=== PATIENT | female | born 2000 | race Caucasian/White ===

== ENCOUNTER 2021-09-03 05:11 | Outpatient (CLI) | payer SELFPAY ==
[2021-09-03 06:22] VITALS: BP 131/87
--- NOTE | 2021-09-03 10:13 | Ultrasound Report ---
US OB BPP wo non-stress, US OB follow up INDICATION / CLINICAL INFORMATION: well being. Clinical Gestational Age (GA) in weeks, days: 39 weeks 4 days TECHNIQUE: Transabdominal. COMPARISON: None available. FINDINGS: NUMBER: Single PRESENTATION: cephalic MATERNAL ADNEXA: No significant abnormality. AMNIOTIC FLUID VOLUME: normal AMNIOTIC FLUID INDEX (JACKELIN) in cm (if measured): 9.1 ANATOMY: Examination is not tailored to evaluate detailed anatomy. Crescentic anechoic structure in the region of the scrotum, likely reflecting hydroceles related to patent processes vaginalis. This is typically a benign transient finding. MEASUREMENTS: - Biparietal Diameter = 8.9 cm = 35 weeks 6 days - Head Circumference = 34.3 cm = 39 weeks 4 days - Abdominal Circumference = 35.2 cm = 39 weeks 0 days - Femur Length = 7.7 cm = 39 weeks 1 day - Estimated Weight (in grams, if calculated): 3568 g - Heart Rate (beats per minute): 137 AVERAGE ULTRASOUND AGE (AUA) in weeks, days = 38 weeks 3 days BIOPHYSICAL PROFILE: BREATHING MOVEMENT = 2 GROSS BODY MOVEMENT = 2 TONE = 2 QUALITATIVE AMNIOTIC FLUID VOLUME = 2 TOTAL BIOPHYSICAL SCORE = 8/8 IMPRESSION: 1. Single intrauterine with AUA of 38 weeks 3 days. Estimated weight measures 3568 g. 2. Bilateral hydroceles, typically a benign transient finding. Continued follow-up is recommend ed. 3. Otherwise, no significant abnormality. Normal JACKELIN of 9.1 cm. 4. Normal biophysical profile of 8/8. Signer Name: Kirt Sanchez MD Signed: 09/03/2021 10:08 AM Workstation Name: Fixed - Parking [id number]
== END 2021-09-03 10:34 | disposition home or self-care (01) ==
LOC: TRG 05:11 → APU 05:12 → TRG 10:34
PROVIDERS: ATTEND Obstetrics & Gynecology
DX: O46.93 Antepartum hemorrhage, unspecified, third trimester (principal); Z3A.39 39 weeks gestation of pregnancy
CPT/HCPCS: 36415; 76816; 76819; 82962; 83036